=== PATIENT | male | born 1955 | race Caucasian/White ===

== ENCOUNTER 2023-02-02 14:06 | Observation (INO) ==
[2023-02-02 15:25] LABS: BASOPHILS % (AUTO) 0.3 % (0.0-3.0); EOSINOPHILS % (AUTO) 0.5 % (0.0-7.0); HEMATOCRIT 40.9 % (42.0-52.0); LYMPHOCYTES # (AUTO) 1.4 K/uL (0.60-3.4); LYMPHOCYTES % (AUTO) 36.1 (10.0-50.0); MEAN CORPUSCULAR HEMOGLOBIN 29.7 pg (27.0-31.0); MEAN CORPUSCULAR HGB CONC 34.2 (31.8-35.4); MEAN CORPUSCULAR VOLUME 86.7 fl (80.0-94.0); MONOCYTES # (AUTO) 0.7 K/uL (0.4-2.0); MONOCYTES % (AUTO) 17.3 (0-10); NEUTROPHILS # (AUTO) 1.8 K/ul (2.0-6.9); NEUTROPHILS % (AUTO) 45.8 % (42.2-75.2); PLATELET COUNT 144 10^3/uL (140-440); RDW COEFFICIENT OF VARIATION 12.7 % (11.6-14.8); RED BLOOD COUNT 4.72 10^6/ul (4.70-6.10); WHITE BLOOD COUNT 3.99 K/ul (4.2-10.2)
[2023-02-02 15:37] LABS: ALANINE AMINOTRANSFERASE 46.8 U/L (0-50); ALBUMIN 4.15 g/dL (3.5-5.0); BILIRUBIN,TOTAL 0.98 mg/dL (0.2-1.3); BLOOD UREA NITROGEN 14.4 mg/dL (9-20); CALCIUM 8.95 mg/dL (8.4-10.2); CARBON DIOXIDE 27.1 mmol/L (22-30.0); CREATININE 0.9 mg/dL (0.60-1.10); GLUCOSE 99.5 mg/dL (74-106); POTASSIUM 3.89 mmol/L (3.5-5.1); TOTAL PROTEIN 7.79 g/dL (6.3-8.2)
[2023-02-02] MEDS ORDERED: ZOFRAN 4 MG/2 ML IVP ONE (15:41)
--- NOTE | 2023-02-02 15:53 | CT ---
EXAMINATION: HEAD CT WITHOUT CONTRAST HISTORY: Confusion TECHNIQUE: Noncontrast CT of the brain was performed with images acquired from skull base to vertex. 2-D coronal and sagittal reformatted images were obtained from the axial source images. Contrast Dose: None. CT Dose Reduction Techniques Performed: Yes. COMPARISON: None. FINDINGS: Topogram demonstrates no significant abnormality. Intraparenchymal hemorrhage: None. Parenchyma: Normal salter-white differentiation. No mass effect or midline shift. Chronic: Decreased attenuation of the periventricular white matter consistent with microangiopathic i schemic change. Extra-axial spaces and basal cisterns: Normal. Ventricles: Enlargement of the ventricles and subarachnoid spaces consistent with atrophy. Paranasal sinuses and mastoid air cells: Visualized portions of paranasal sinuses are clear. Mastoid air cells are clear. Orbits: Normal visualized portions. Sella/Skull Base: Normal. Other: Scalp and visualized soft tissues are normal. Calvarium is normal. IMPRESSION: 1. No acute intracranial process. 2. Microangiopathic ischemic changes and atrophy are noted. All CT scans are performed using dose optimization techniques as appropriate to the performed exam an d include at least one of the following: Automated exposure control, adjustment of the mA and/or kV according t o size, and the use of iterative reconstruction technique.
--- NOTE | 2023-02-02 15:53 | DI ---
EXAM: CHEST ONE-VIEW HISTORY: Shortness of breath COMPARISON: None FINDINGS: The cardiomediastinal silhouette is normal. The pulmonary vasculature is normal. No cons olidating infiltrates are detected. Postsurgical changes are noted in the right lung base. No pneum othoraces or pleural effusions. IMPRESSION: 1. No acute cardiopulmonary disease. .
[2023-02-02 16:12] LABS: SARS COV-2 RNA RAPID NAAT POSITIVE (NEGATIVE)
[2023-02-02 17:30] VITALS: BMI 27.0
--- NOTE | 2023-02-02 18:32 | ED.PDOC ---
General ED Provider: Dr. ANISHA BAUMAN DO Chief Complaint: Weakness Stated Complaint: 67 year old male recently diagnosed with COVID19 who presents to the emergency department with chief complaint of confusion x 1 day duration. Patients spouse reported patient started becoming confused after initiation of Lagevrio which he was prescribed by his PCP after his COVID diagnosis. Also reports episodes of nausea and vomiting. Denies fever, syncope, chest pain, abdominal pain, diarrhea, dysuria, flank pain, or new focal weakness/numbness. No other associated symptoms or modifying factors at this time. Time Seen by Provider: 02/02/23 14:40 Information Source: Patient, Family and EMT Primary Care Provider: FREDDY SNELL Nursing and Triage Documentation Reviewed and Agree: Yes Review of Systems Review Of Systems Constitutional: Reports No symptoms All Other Systems: Reviewed and Negative [facility] Medical History GERD (gastroesophageal reflux disease) K21.9 - Gastro-esophageal reflux disease without esophagitis (ICD-10) Anxiety F41.9 - Anxiety disorder, unspecified (ICD-10) Right lower lobe lung mass R91.8 - Other nonspecific abnormal finding of lung field (ICD-10) Hyperlipidemia E78.5 - Hyperlipidemia, unspecified (ICD-10) Family History Mother Heart disease Mother Diabetes FATHER Lung cancer Hypoglycemia Social History Smoking and tobacco status: Former smoker How long ago did patient quit smokin+ years Surgical History H/O hernia repair Z98.890 - Other specified postprocedural states (ICD-10) Z87.19 - Personal history of other diseases of the digestive system (ICD-10) History of cholecystectomy Z90.49 - Acquired absence of other specified parts of digestive tract (ICD- 10) Physical Exam Physical Exam Appearance: Reports Ill-appearing, No pain distress and Well-nourished Ill-appearing: Mild Pain Distress: None Eyes: Reports KARO, EOMI and Conjunctiva clear ENT: Reports Ears normal, Nose normal and Oropharynx normal Neck: Supple Respiratory: Reports Airway patent, Breath sounds clear, Breath sounds equal and Respirations nonlabored Cardiovascular: Reports RRR, Pulses normal, No rub and No murmur GI/: Reports Soft, Nontender, No masses, Bowel sounds normal and No Organomegaly Musculoskeletal: Reports Normal strength, ROM intact, No edema and No calf tenderness Skin: Reports Warm, Dry and Normal color Neurological: Reports Sensation intact, Motor intact, Alert and Disoriented (encephalopathic. slow to respond and AAOx1) Psychiatric: Reports Other (flat mood and affect) Critical Care Note Critical Care Note Total Critical Care Time (mins): 0 Course Course 02/05/23 09:18 02/05/23 09:18 Orders, Labs, Meds: Lab Review 02/02/23 02/02/23 15:05 15:10 WBC 3.99 L RBC 4.72 Hgb 14.0 Hct 40.9 L MCV 86.7 MCH 29.7 MCHC 34.2 RDW Coeff of Kassidy 12.7 Plt Count 144 Immature Gran % (Auto) 0.0 Neut % (Auto) 45.8 Lymph % (Auto) 36.1 [place] % (Auto) 17.3 H Eos % (Auto) 0.5 Baso % (Auto) 0.3 Neut # (Auto) 1.8 L Lymph # (Auto) 1.4 [place] # (Auto) 0.7 Eos # (Auto) 0.0 Baso # (Auto) 0.0 Immature Gran # (Auto) 0.0 Sodium 135.0 Potassium 3.89 Chloride 100.0 Carbon Dioxide 27.1 Anion Gap 11.79 BUN 14.4 Creatinine 0.90 Estimated GFR (MDRD) 84.00 BUN/Creatinine Ratio 16.00 Glucose 99.5 Lactic Acid 1.05 Calcium 8.95 Total Bilirubin 0.98 AST 54.0 ALT 46.8 Alkaline Phosphatase 82.0 Total Protein 7.79 Albumin 4.15 Globulin 3.64 Albumin/Globulin Ratio 1.14 Plasma/Serum Alcohol < 10.0 SARS CoV-2 RNA Rapid ITALIA Positive H Orders Category Date Time Status EKG-(ED ONLY) Stat CARDIO 02/02/23 15:01 Completed BLOOD ALCOHOL Stat LAB 02/02/23 15:10 Completed BLOOD CULTURE Stat LAB 02/02/23 15:10 Completed CBC W/ AUTO DIFF Stat LAB 02/02/23 15:10 Completed COMPREHENSIVE METABOLIC PANEL Stat LAB 02/02/23 15:10 Completed DRUG SCREEN, URINE, RAPID Stat LAB 02/02/23 05:30 Completed LACTIC ACID Stat LAB 02/02/23 15:10 Completed POS BC ID AND MCKENZIE Stat LAB 02/02/23 15:16 Completed SARS COV-2 RNA RAPID ITALIA Stat LAB 02/02/23 15:05 Completed Ondansetron HCl/Pf [Zofran 4 mg/2 ml] Meds 02/02/23 15:41 Discontinued 4 mg IVP ONCE ONE CHEST, 1V AP ONLY Stat RADS 02/02/23 15:[address] HEAD W/O CONTRAST Stat RADS 02/02/23 14:59 Completed Medications Discontinued Medications Generic Name Dose Route Start Last Admin Trade Name Freq PRN Reason Stop Dose Admin Acetaminophen 650 mg 02/02/23 16:56 02/05/23 10:27 Acetaminophen 325 Mg Tablet PO 650 mg Q4H PRN Administration Mild Pain Aspirin 81 mg 02/02/23 21:00 02/02/23 21:00 Aspirin 81 Mg Tablet. PO 81 mg DAILY VAMSI Administration Aspirin 81 mg 02/03/23 07:30 02/05/23 09:05 Aspirin 81 Mg Tablet. PO 81 mg DAILYWM2 VAMSI Administration Atorvastatin Calcium 20 mg 02/02/23 21:00 02/03/23 08:28 Atorvastatin Calcium 20 Mg Tablet PO 20 mg DAILY VAMSI Administration Budesonide/Formoterol Fumarate 2 puff 02/02/23 21:00 02/05/23 08:54 Budesonide/Formoterol Fumarate 160/4.5 Mcg Inhaler IH 2 puff BID VAMSI Administration Duloxetine HCl 60 mg 02/02/23 21:00 02/05/23 08:52 Duloxetine Hcl 30 Mg Capsule. PO 60 mg DAILY VAMSI Administration Fluticasone Propionate 1 spray 02/02/23 21:00 02/05/23 08:55 Fluticasone Propionate 16 Gm Nasal Shirley ARTEMIO 1 spray DAILY VAMSI Administration Diphenhydramine HCl 25 mg/ 100.5 mls @ 200 mls/hr 02/03/23 00:57 02/03/23 01:07 Sodium Chloride IV 02/03/23 01:27 200 mls/hr ONCE STA Administration Sodium Chloride 1,000 mls @ 75 mls/hr 02/04/23 15:30 02/05/23 07:01 Sodium Chloride IV Not Given .[id number] VAMSI Isosorbide Mononitrate 30 mg 02/03/23 09:00 02/03/23 08:28 Isosorbide Mononitrate 30 Mg Tab.Er.24h PO 30 mg DAILY VAMSI Administration Loratadine 10 mg 02/02/23 21:00 02/05/23 08:52 Loratadine 10 Mg Tablet PO 10 mg DAILY VAMSI Administration Lorazepam 1 mg 02/02/23 19:51 02/02/23 19:55 Lorazepam Inj 2 Mg/Ml Disp.Syringe IVP 02/02/23 19:52 Not Given ONCE ONE Lorazepam 1 mg 02/02/23 20:00 02/02/23 21:31 Lorazepam Inj 2 Mg/Ml Disp.Syringe IVP 1 mg ONCE PRN Administration Restlessness Metoprolol Succinate 50 mg 02/02/23 21:00 02/05/23 08:52 Metoprolol Succinate 50 Mg Tab.Er.24h PO 50 mg DAILY VAMSI Administration Multivitamins 1 tab 02/02/23 21:00 02/05/23 08:51 Multivitamin 1 Tab PO 1 tab DAILY VAMSI Administration Non-Formulary Medication 1 inh 02/02/23 21:00 Fluticasone Propion-Salmeterol [Advair Diskus] IH BID VAMSI Non-Formulary Medication 800 mg 02/02/23 20:00 02/02/23 21:02 Molnupiravir [Lagevrio (Eua)] PO 800 mg Q12H VAMSI Administration Non-Formulary Medication 800 mg 02/03/23 09:00 02/05/23 09:23 Molnupiravir [Lagevrio (Eua)] PO 800 mg Q12HR VAMSI Administration Ondansetron HCl 4 mg 02/02/23 15:41 02/02/23 15:59 Ondansetron Hcl/Pf 4 Mg/2 Ml Sdv IVP 02/02/23 15:42 4 mg ONCE ONE Administration Pantoprazole Sodium 40 mg 02/02/23 21:00 02/02/23 21:00 Pantoprazole Sodium 40 Mg Tablet.Dr PO 40 mg DAILY VAMSI Administration Pantoprazole Sodium 40 mg 02/03/23 09:00 02/05/23 05:30 Pantoprazole Sodium 40 Mg Tablet.Dr PO 40 mg QDAC2 VAMSI Administration Vital Signs: Temp Pulse Resp BP Pulse Ox 02/02/23 14:09 98.7 F 74 18 173/97 H 94 L Discharge Plan Discharge Patient Disposition: PLACED OBSERVATION Discharge Problem: COVID-19, Acute metabolic encephalopathy Did you review [place]GAL RESEARCHER for ALL controlled substances?: Not Applicable ED Provider: ANISHA BAUMAN Condition: Stable Physician Progress Note: []
[2023-02-02] MEDS ORDERED: ATIVAN IVP ONE (19:51)
[2023-02-02] MEDS ORDERED: MOLNUPIRAVIR 200 MG PO SCH (20:00)
[2023-02-02] MEDS ORDERED: ATIVAN IVP PRN (20:00)
[2023-02-02] MEDS: SYMBICORT 160-4.5 MCG INHALER IH SCH (21:00)
[2023-02-02] MEDS ORDERED: NON-FORMULARY MEDICATION (Fluticasone Propion-Salmeterol [Advair Diskus] 250-50 mcg/dose b IH SCH (21:00)
[2023-02-02] MEDS ORDERED: PROTONIX PO SCH (21:00)
[2023-02-02] MEDS: CYMBALTA PO SCH (21:00)
[2023-02-02] MEDS ORDERED: ASPIRIN EC PO SCH (21:00)
[2023-02-02] MEDS: LIPITOR PO SCH (21:00)
[2023-02-02] MEDS: FLONASE NAS SCH (21:00)
[2023-02-02] MEDS: MULTIVITAMIN TABLET PO SCH (21:00)
[2023-02-02] MEDS: CLARITIN PO SCH (21:00)
[2023-02-02] MEDS: TOPROL XL PO SCH (21:00)
[2023-02-03] MEDS ORDERED: BENADRYL 25 MG in SODIUM CHLORIDE 100ML 100 ML IV STA (00:57)
[2023-02-03] MEDS ORDERED: BENADRYL ONE (01:04)
[2023-02-03 05:38] LABS: BASOPHILS % (AUTO) 0.2 % (0.0-3.0); EOSINOPHILS % (AUTO) 0.4 % (0.0-7.0); HEMATOCRIT 40.1 % (42.0-52.0); HEMOGLOBIN 13.7 g/dl (14.0-18.0); IMMATURE GRANULOCYTE % (AUTO) 0.2 % (0.0-5.0); LYMPHOCYTES # (AUTO) 1.5 K/uL (0.60-3.4); MEAN CORPUSCULAR HEMOGLOBIN 29.5 pg (27.0-31.0); MEAN CORPUSCULAR HGB CONC 34.2 (31.8-35.4); MEAN CORPUSCULAR VOLUME 86.2 fl (80.0-94.0); MONOCYTES # (AUTO) 0.7 K/uL (0.4-2.0); MONOCYTES % (AUTO) 13.8 (0-10); NEUTROPHILS # (AUTO) 2.7 K/ul (2.0-6.9); NEUTROPHILS % (AUTO) 55.4 % (42.2-75.2); PLATELET COUNT 148 10^3/uL (140-440); RDW COEFFICIENT OF VARIATION 12.6 % (11.6-14.8); RED BLOOD COUNT 4.65 10^6/ul (4.70-6.10); WHITE BLOOD COUNT 4.84 K/ul (4.2-10.2)
[2023-02-03 05:49] LABS: ALANINE AMINOTRANSFERASE 52.1 U/L (0-50); ALBUMIN 4.04 g/dL (3.5-5.0); ALKALINE PHOSPHATASE 78.7 U/L (56-119); ASPARTATE AMINO TRANSFERASE 65.2 U/L (17-59); BILIRUBIN,TOTAL 1.15 mg/dL (0.2-1.3); BLOOD UREA NITROGEN 16.6 mg/dL (9-20); CALCIUM 8.86 mg/dL (8.4-10.2); CARBON DIOXIDE 28.6 mmol/L (22-30.0); CREATININE 0.9 mg/dL (0.60-1.10); GLUCOSE 100.2 mg/dL (74-106); POTASSIUM 3.95 mmol/L (3.5-5.1); SODIUM 135.8 mmol/L (134.5-145); TOTAL PROTEIN 7.77 g/dL (6.3-8.2)
[2023-02-03] MEDS: LIPITOR PO SCH (08:28)
[2023-02-03] MEDS: CLARITIN PO SCH (08:28)
[2023-02-03] MEDS: TOPROL XL PO SCH (08:28)
[2023-02-03] MEDS: CYMBALTA PO SCH (08:28)
[2023-02-03] MEDS: MULTIVITAMIN TABLET PO SCH (08:29)
[2023-02-03] MEDS: SYMBICORT 160-4.5 MCG INHALER IH SCH ×2 (08:30→20:00)
[2023-02-03] MEDS: ASPIRIN EC PO SCH (08:30)
[2023-02-03] MEDS: MOLNUPIRAVIR 200 MG PO SCH ×2 (08:53→20:00)
[2023-02-03] MEDS: FLONASE NAS SCH (08:53)
[2023-02-03] MEDS ORDERED: IMDUR PO SCH (09:00)
[2023-02-03 09:31] LABS: BILIRUBIN,URINE Negative (NEGATIVE); CLARITY,URINE Cloudy (CLEAR); COLOR,URINE Yellow (YELLOW); GLUCOSE, URINE (UA) Negative (NEGATIVE); KETONES,URINE 1+ (NEGATIVE); LEUKOCYTE ESTERASE ,URINE Negative (NEGATIVE); NITRITE,URINE Negative (NEGATIVE); PROTEIN,URINE 2+ (NEGATIVE); URINE, BLOOD 3+ (NEGATIVE)
[2023-02-03 09:34] LABS: AMORPHOUS SEDIMENT,UR 3+ (NOT PRESENT); RENAL EPITHELIAL CELLS,URINE 0-2 (NOT PRESENT); SQUAMOUS EPITHELIAL CELL,UR NOT PRESENT (0-5); URINE WBC, MICROSCOPIC 0-2 (0-2)
[2023-02-03 09:36] LABS: AMPHETAMINE SCREEN,URINE NEGATIVE (NEGATIVE); BARBITURATE SCREEN,URINE NEGATIVE (NEGATIVE); BENZODIAZEPINES SCREEN,URINE POSITIVE (NEGATIVE); CANNABINOID SCREEN,URINE NEGATIVE (NEGATIVE); COCAIN SCREEN,URINE NEGATIVE (NEGATIVE); METHADONE URINE SCREEN NEGATIVE (NEGATIVE); METHAMPHETAMINES SCREEN,URINE NEGATIVE (NEGATIVE); OPIATE SCREEN,URINE NEGATIVE (NEGATIVE); OXYCODONE URINE SCREEN NEGATIVE (NEGATIVE); PHENCYCLIDINE SCREEN,URINE NEGATIVE (NEGATIVE); TRICYCLIC ANTIDEPRESSANTS URIN NEGATIVE (NEGATIVE)
[2023-02-03] MEDS: PROTONIX PO SCH (11:34)
--- NOTE | 2023-02-03 13:19 | PCM ---
Date of Service Date Seen by Provider: 02/03/23 Time Seen by Provider: 09:00 Admit Day/Time Admission Date: 02/02/23 Reason for Admission Chief Complaint: COVID POSITIVE, ACUTE METABOLIC ENCEPHALOPATHY Hospital Provider Hospital Provider: INDER KNUT[place], [facility] [place] Primary Care Physician: FREDDY SNELL History of Present Illness History of Present Illness: 67 yo male presented to the ER for altered mental status and weakness. reports that he started getting sick on 01/28 with symptoms of congestion, sore throat, and cough. Tested for Covid on Wednesday and was negative. Tested again on Wednesday and was positive. ER tested as well and confirmed the positive. He is asymptomatic now, but has had generalized weakness that has continued to worsen. reports that at home he has been unable to get up to use the bathroom or perform any of his ADLs since the onset of his symptoms. He has been taking molnupiravir since Wednesday. Patient has a history of dementia and is confused at baseline but not to this degree per her report. He is disoriented x 3. However, he is able to follow some basic commands. Due to this, unable to provide HPI/ROS. Case Discussed With Case Discussed With: Patient's case was discussed with the ER Physicians, Dr. Lorenz. [facility] Medical History GERD (gastroesophageal reflux disease) K21.9 - Gastro-esophageal reflux disease without esophagitis (ICD-10) Anxiety F41.9 - Anxiety disorder, unspecified (ICD-10) Right lower lobe lung mass R91.8 - Other nonspecific abnormal finding of lung field (ICD-10) Hyperlipidemia E78.5 - Hyperlipidemia, unspecified (ICD-10) Surgical History H/O hernia repair Z98.890 - Other specified postprocedural states (ICD-10) Z87.19 - Personal history of other diseases of the digestive system (ICD-10) History of cholecystectomy Z90.49 - Acquired absence of other specified parts of digestive tract (ICD- 10) Family History Mother Heart disease Mother Diabetes FATHER Lung cancer Hypoglycemia Social History Smoking and tobacco status: Former smoker How long ago did patient quit smokin+ years Allergies Allergies Allergy/AdvReac Type Severity Reaction Status Date / Time nabumetone [From Relafen] AdvReac Verified 02/02/23 14:49 silver AdvReac Verified 02/02/23 14:49 [From Tegaderm AG Mesh] simvastatin [From Zocor] AdvReac Verified 02/02/23 14:49 Current Medications Home Medications albuterol sulfate 90 mcg/actuation aerosol inhaler 2 puff inhalation Q4H PRN shortness of breath or wheezing 02/02/23 [History Confirmed 02/02/23 Last Taken 02/02/23 09:00] aspirin 81 mg tablet,delayed release (Adult Low Dose Aspirin) 81 mg PO DAILY 02/02/23 [History Confirmed 02/02/23 Last Taken 02/01/23 09:00] atorvastatin 20 mg tablet 20 mg PO DAILY 02/02/23 [History Confirmed 02/02/23 Last Taken 02/01/23 21:00] docusate calcium 240 mg capsule 240 mg PO DAILY PRN constipation 02/02/23 [History Confirmed 02/02/23 Last Taken Unknown] duloxetine 60 mg capsule,delayed release 60 mg PO DAILY 02/02/23 [History Confirmed 02/02/23 Last Taken 02/01/23 09:00] fluticasone 250 mcg-salmeterol 50 mcg/dose blistr powdr for inhalation (Advair Diskus) 1 inh inhalation BID 02/02/23 [History Confirmed 02/02/23 Last Taken 02/01/23 21:00] fluticasone propionate 50 mcg/actuation nasal spray,suspension 1 spray intranasal DAILY 02/02/23 [History Confirmed 02/02/23 Last Taken 02/01/23 09:00] ibuprofen-diphenhydramine citrate 200 mg-38 mg tablet 1 cap PO BEDTIME PRN sleep 02/02/23 [History Confirmed 02/02/23 Last Taken Unknown] isosorbide mononitrate 30 mg tablet,extended release 24 hr 30 mg PO DAILY 02/02/23 [History Confirmed 02/02/23 Last Taken Unknown] loratadine 10 mg tablet (Claritin) 10 mg PO DAILY 02/02/23 [History Confirmed 02/02/23 Last Taken 02/01/23 08:00] metoprolol succinate 50 mg tablet,extended release 24 hr 50 mg PO DAILY 02/02/23 [History Confirmed 02/02/23 Last Taken 02/01/23 08:00] molnupiravir 200 mg capsule (EUA) (Lagevrio) 800 mg PO Q12H 02/02/23 [History Confirmed 02/02/23 Last Taken 02/02/23 09:00] pantoprazole 40 mg tablet,delayed release (Protonix) 40 mg PO DAILY 02/02/23 [History Confirmed 02/02/23 Last Taken Unknown] Home Acetaminophen (Acetaminophen 325 Mg Tablet) 650 mg PO Q4H PRN PRN Reason: Mild Pain Aspirin (Aspirin 81 Mg Tablet.) 81 mg PO DAILYWM2 [facility] Last Admin: 02/03/23 08:30 Dose: 81 mg Atorvastatin Calcium (Atorvastatin Calcium 20 Mg Tablet) 20 mg PO DAILY [facility] Last Admin: 02/03/23 08:28 Dose: 20 mg Budesonide/Formoterol Fumarate (Budesonide/Formoterol Fumarate 160/4.5 Mcg Inhaler) 2 puff IH BID [facility] Last Admin: 02/03/23 08:30 Dose: 2 puff Duloxetine HCl (Duloxetine Hcl 30 Mg Capsule.) 60 mg PO DAILY [facility] Last Admin: 02/03/23 08:28 Dose: 60 mg Fluticasone Propionate (Fluticasone Propionate 16 Gm Nasal [place]) 1 spray ARTEMIO DAILY [facility] Last Admin: 02/03/23 08:53 Dose: Not Given Isosorbide Mononitrate (Isosorbide Mononitrate 30 Mg Tab.Er.24h) 30 mg PO DAILY [facility] Last Admin: 02/03/23 08:28 Dose: 30 mg Loratadine (Loratadine 10 Mg Tablet) 10 mg PO DAILY [facility] Last Admin: 02/03/23 08:28 Dose: 10 mg Lorazepam (Lorazepam Inj 2 Mg/Ml Disp.Syringe) 1 mg IVP ONCE PRN PRN Reason: Restlessness Last Admin: 02/02/23 21:31 Dose: 1 mg Metoprolol Succinate (Metoprolol Succinate 50 Mg Tab.Er.24h) 50 mg PO DAILY [facility] Last Admin: 02/03/23 08:28 Dose: 50 mg Multivitamins (Multivitamin 1 Tab) 1 tab PO DAILY [facility] Last Admin: 02/03/23 08:29 Dose: 1 tab Non-Formulary Medication (Molnupiravir [Lagevrio (Eua)]) 800 mg PO Q12HR [facility] Last Admin: 02/03/23 08:53 Dose: 800 mg Pantoprazole Sodium (Pantoprazole Sodium 40 Mg Tablet.) 40 mg PO QDAC2 [facility] Last Admin: 02/03/23 11:34 Dose: 40 mg Discontinued Medications Aspirin (Aspirin 81 Mg Tablet.) 81 mg PO DAILY [facility] Last Admin: 02/02/23 21:00 Dose: 81 mg Diphenhydramine HCl 25 mg/ (Sodium Chloride) 100.5 mls @ 200 mls/hr IV ONCE STA Stop: 02/03/23 01:27 Last Admin: 02/03/23 01:07 Dose: 200 mls/hr Lorazepam (Lorazepam Inj 2 Mg/Ml Disp.Syringe) 1 mg IVP ONCE ONE Stop: 02/02/23 19:52 Last Admin: 02/02/23 19:55 Dose: Not Given Non-Formulary Medication (Fluticasone Propion-Salmeterol [Advair Diskus]) 1 inh IH BID [facility] Non-Formulary Medication (Molnupiravir [Lagevrio (Eua)]) 800 mg PO Q12H [facility] Last Admin: 02/02/23 21:02 Dose: 800 mg Ondansetron HCl (Ondansetron Hcl/Pf 4 Mg/2 Ml Sdv) 4 mg IVP ONCE ONE Stop: 02/02/23 15:42 Last Admin: 02/02/23 15:59 Dose: 4 mg Pantoprazole Sodium (Pantoprazole Sodium 40 Mg Tablet.) 40 mg PO DAILY [facility] Last Admin: 02/02/23 21:00 Dose: 40 mg Physical examination Most Recent Vital Signs: Most Recent Vital Signs Temperature 97.4 F L 02/03/23 05:54 Temperature Source Temporal Artery Scan 02/03/23 05:54 Temperature Source Infrared 02/02/23 14:09 Pulse Rate 74 02/03/23 05:54 Respiratory Rate 24 H 02/03/23 05:54 Blood Pressure 146/64 H 02/03/23 05:54 Blood Pressure Mean 91 02/03/23 05:54 Blood Pressure Right Arm 154/78 02/02/23 17:05 Blood Pressure Location Right Arm 02/03/23 05:54 Blood Pressure Position Supine 02/03/23 05:54 O2 Sat by Pulse Oximetry 94 L 02/02/23 22:00 Oxygen Delivery Method Room Air 02/03/23 12:00 Height 5 ft 9 in 02/02/23 17:05 Weight 183 lb 02/02/23 17:05 Telemetry Type Remote Telemetry 02/03/23 07:00 Telemetry Monitoring Continues 02/03/23 07:00 Telemetry Heart Rate 74 02/03/23 07:00 Telemetry SPO2 93 02/02/23 19:00 EKG PA Interval 0.14 02/03/23 07:00 EKG QRS Interval 0.06 02/03/23 07:00 Telemetry Strip Reading sr w/ pac 02/03/23 07:00 Appearance: Positive No Apparent Distress Skin: Positive Warm and Good Turgor HEENT: Positive Normocephalic and PERRLA Neck: Positive Supple and Midline Trachea Chest/Lungs: Positive Symmetrical With Equal Breath Sounds, Clear to Auscultation Bilaterally and Good Air Movement all 4 Lung [place] Heart: Positive RRR and Pulses Normal GI/: Positive Soft, Nontender, Bowel Sounds Normal, No Distention and No Organomegaly Musculoskeletal: Positive Not Examined Extremities: Positive Intact Peripheral Pulses, Stable Joints Without Laxity and Good ROM in All Joints Neurological: Positive Sensation Intact, Motor intact, Reflexes Intact, Alert, Disorinted and Other (Generalized weakness) Labs This Visit Labs This Visit: Labs This Visit 02/02/23 02/02/23 02/03/23 15:05 15:10 05:30 WBC 3.99 L RBC 4.72 Hgb 14.0 Hct 40.9 L MCV 86.7 MCH 29.7 MCHC 34.2 RDW Coeff of Kassidy 12.7 Plt Count 144 Immature Gran % (Auto) 0.0 Neut % (Auto) 45.8 Lymph % (Auto) 36.1 [place] % (Auto) 17.3 H Eos % (Auto) 0.5 Baso % (Auto) 0.3 Neut # (Auto) 1.8 L Lymph # (Auto) 1.4 [place] # (Auto) 0.7 Eos # (Auto) 0.0 Baso # (Auto) 0.0 Immature Gran # (Auto) 0.0 Sodium 135.0 Potassium 3.89 Chloride 100.0 Carbon Dioxide 27.1 Anion Gap 11.79 BUN 14.4 Creatinine 0.90 Estimated GFR (MDRD) 84.00 BUN/Creatinine Ratio 16.00 Glucose 99.5 Lactic Acid 1.05 Calcium 8.95 Total Bilirubin 0.98 AST 54.0 ALT 46.8 Alkaline Phosphatase 82.0 Total Protein 7.79 Albumin 4.15 Globulin 3.64 Albumin/Globulin Ratio 1.14 Urine Color Yellow Urine Clarity Cloudy Urine pH 5.0 Ur Specific [place] 1.025 Urine Protein 2+ H Urine Glucose (UA) Negative Urine Ketones 1+ H Urine Blood 3+ H Urine Nitrite Negative Urine Bilirubin Negative Urine Urobilinogen 1.0 H Ur Leukocyte Esterase Negative Urine Microscopic RBC 5-10 Urine Microscopic WBC 0-2 Ur Squamous Epith Cells Not present Ur Renal Epithelial Cell 0-2 Amorphous Sediment 3+ Urine Opiates Screen Negative Ur Oxycodone Screen Negative Urine Methadone Screen Negative Ur Barbiturates Screen Negative U Tricyclic Antidepress Negative Ur Phencyclidine Scrn Negative Ur Amphetamine Screen Negative U Methamphetamines Scrn Negative U Benzodiazepines Scrn Positive H Urine Cocaine Screen Negative U Cannabinoids Screen Negative Plasma/Serum Alcohol < 10.0 SARS CoV-2 RNA Rapid ITALIA Positive H 02/03/23 05:33 WBC 4.84 RBC 4.65 L Hgb 13.7 L Hct 40.1 L MCV 86.2 MCH 29.5 MCHC 34.2 RDW Coeff of Kassidy 12.6 Plt Count 148 Immature Gran % (Auto) 0.2 Neut % (Auto) 55.4 Lymph % (Auto) 30.0 [place] % (Auto) 13.8 H Eos % (Auto) 0.4 Baso % (Auto) 0.2 Neut # (Auto) 2.7 Lymph # (Auto) 1.5 [place] # (Auto) 0.7 Eos # (Auto) 0.0 Baso # (Auto) 0.0 Immature Gran # (Auto) 0.0 Sodium 135.8 Potassium 3.95 Chloride 99.0 Carbon Dioxide 28.6 Anion Gap 12.15 BUN 16.6 Creatinine 0.90 Estimated GFR (MDRD) 84.00 BUN/Creatinine Ratio 18.44 Glucose 100.2 Lactic Acid Calcium 8.86 Total Bilirubin 1.15 AST 65.2 H ALT 52.1 H Alkaline Phosphatase 78.7 Total Protein 7.77 Albumin 4.04 Globulin 3.73 Albumin/Globulin Ratio 1.08 Urine Color Urine Clarity Urine pH Ur Specific [place] Urine Protein Urine Glucose (UA) Urine Ketones Urine Blood Urine Nitrite Urine Bilirubin Urine Urobilinogen Ur Leukocyte Esterase Urine Microscopic RBC Urine Microscopic WBC Ur Squamous Epith Cells Ur Renal Epithelial Cell Amorphous Sediment Urine Opiates Screen Ur Oxycodone Screen Urine Methadone Screen Ur Barbiturates Screen U Tricyclic Antidepress Ur Phencyclidine Scrn Ur Amphetamine Screen U Methamphetamines Scrn U Benzodiazepines Scrn Urine Cocaine Screen U Cannabinoids Screen Plasma/Serum Alcohol SARS CoV-2 RNA Rapid ITALIA Microbiology This Visit 02/02/23 15:10 Blood Blood Culture - Preliminary Imaging Imaging: EXAM: CHEST ONE-VIEW FINDINGS: The cardiomediastinal silhouette is normal. The pulmonary vasculature is normal. No consolidating infiltrates are detected. Postsurgical changes are noted in the right lung base. No pneumothoraces or pleural effusions. IMPRESSION: 1. No acute cardiopulmonary disease. Review Statement Review Statement: I have independently reviewed and interpreted the labs/EKGs/imaging that were ordered by the ER provider. I have reviewed all outside records that are available currently in our EMR including imaging/notes/labs from previous visits. Plan Plan: 1. Acute Metabolic Encephalopathy in setting of Covid-19 - avoid any neurologically altering medications, neurochecks, checking urinalysis which was negative, UDS negative, head CT negative 2. Covid-19 - asymptomatic, continue molnupiravir until course completed, monitor respiratory status 3. Weakness in setting of Covid-19 - PT/OT consulted to determine need for treatment 4. Positive Blood Culture - gram positive cocci - likely contaminant; no source of infection at this time, no fever, WBC count, procal negative, will repeat 5. Hypertension - chronic, continue home medications DVT Prophylaxis: Ambulation Time Spent: Greater than 80 minutes spent with patient, 50% of the time spent with this patient was devoted to counseling and coordination of care. Advanced Care Plannin minutes spent discussing advance care planning. Disposition: Admit to: Med/Surg Observation Full Code Discussed Plan of Care with Dr. Ave Escobar. Medications Medication Orders: Medications Ordered Category Date Time Status Acetaminophen [Tylenol] Meds 02/02/23 16:56 Active 650 mg PO Q4H PRN Aspirin [Aspirin EC] Meds 02/03/23 07:30 Active 81 mg PO DAILYWM2 Atorvastatin Calcium [Lipitor] Meds 02/02/23 21:00 Hold 20 mg PO DAILY Budesonide/Formoterol Fumarate [Symbicort 160-4.5 Mcg Meds 02/02/23 21:00 Active Inhaler] 2 puff IH BID Duloxetine HCl [Cymbalta] Meds 02/02/23 21:00 Active 60 mg PO DAILY Fluticasone Propionate [Flonase] Meds 02/02/23 21:00 Active 1 spray ARTEMIO DAILY Isosorbide Mononitrate [Imdur] Meds 02/03/23 09:00 Active 30 mg PO DAILY Loratadine [Claritin] Meds 02/02/23 21:00 Active 10 mg PO DAILY Lorazepam Inj [Ativan] Meds 02/02/23 20:00 Active 1 mg IVP ONCE PRN Metoprolol Succinate [Toprol Xl] Meds 02/02/23 21:00 Active 50 mg PO DAILY Molnupiravir [Lagevrio (Eua)] Meds 02/03/23 09:00 Active 800 mg PO Q12HR Multivitamin [Multivitamin Tablet] Meds 02/02/23 21:00 Active 1 tab PO DAILY Pantoprazole Sodium [Protonix] Meds 02/03/23 09:00 Active 40 mg PO QDAC2
[2023-02-03] MEDS: TYLENOL PO PRN (16:19)
[2023-02-04 05:19] LABS: BASOPHILS % (AUTO) 0.4 % (0.0-3.0); EOSINOPHILS # (AUTO) 0.1 K/ul (0.0-0.7); EOSINOPHILS % (AUTO) 2.5 % (0.0-7.0); HEMATOCRIT 39.2 % (42.0-52.0); HEMOGLOBIN 13.1 g/dl (14.0-18.0); LYMPHOCYTES # (AUTO) 2.5 K/uL (0.60-3.4); LYMPHOCYTES % (AUTO) 48.4 (10.0-50.0); MEAN CORPUSCULAR HEMOGLOBIN 29.1 pg (27.0-31.0); MEAN CORPUSCULAR HGB CONC 33.4 (31.8-35.4); MEAN CORPUSCULAR VOLUME 87.1 fl (80.0-94.0); MONOCYTES # (AUTO) 0.6 K/uL (0.4-2.0); MONOCYTES % (AUTO) 11.5 (0-10); NEUTROPHILS # (AUTO) 1.9 K/ul (2.0-6.9); NEUTROPHILS % (AUTO) 37.2 % (42.2-75.2); PLATELET COUNT 144 10^3/uL (140-440); RDW COEFFICIENT OF VARIATION 12.6 % (11.6-14.8); WHITE BLOOD COUNT 5.21 K/ul (4.2-10.2)
[2023-02-04 05:32] LABS: ALANINE AMINOTRANSFERASE 52.3 U/L (0-50); ALBUMIN 3.92 g/dL (3.5-5.0); ASPARTATE AMINO TRANSFERASE 62.6 U/L (17-59); BILIRUBIN,TOTAL 1.34 mg/dL (0.2-1.3); BLOOD UREA NITROGEN 22.1 mg/dL (9-20); CALCIUM 8.68 mg/dL (8.4-10.2); CARBON DIOXIDE 30.5 mmol/L (22-30.0); CHLORIDE 99.3 mmol/L (98-107); CREATININE 0.98 mg/dL (0.60-1.10); GLUCOSE 87.4 mg/dL (74-106); POTASSIUM 3.78 mmol/L (3.5-5.1); SODIUM 137.1 mmol/L (134.5-145); TOTAL PROTEIN 7.47 g/dL (6.3-8.2)
[2023-02-04] MEDS: PROTONIX PO SCH (06:11)
[2023-02-04] MEDS: CYMBALTA PO SCH (08:38)
[2023-02-04] MEDS: TOPROL XL PO SCH (08:39)
[2023-02-04] MEDS: CLARITIN PO SCH (08:39)
[2023-02-04] MEDS: MULTIVITAMIN TABLET PO SCH (08:39)
[2023-02-04] MEDS: FLONASE NAS SCH (08:40)
[2023-02-04] MEDS: SYMBICORT 160-4.5 MCG INHALER IH SCH ×2 (08:40→20:12)
[2023-02-04] MEDS: ASPIRIN EC PO SCH (08:45)
[2023-02-04] MEDS: MOLNUPIRAVIR 200 MG PO SCH ×2 (08:46→20:11)
--- NOTE | 2023-02-04 15:30 | PCM.PROG ---
Date/Time Seen Date Seen by Provider: 02/04/23 Time Seen by Provider: 09:00 Provider Provider: INDER KNUT[facility] Chief Complaint Chief Complaint: COVID POSITIVE, ACUTE METABOLIC ENCEPHALOPATHY Subjective Subjective: No events overnight. feels mental status is improving more to baseline. Nursing reports dark urine and not eating or drinking well today. Objective Appearance: Positive No Apparent Distress Chest/Lungs: Positive Symmetrical With Equal Breath Sounds, Clear to Auscultation Bilaterally and Good Air Movement all 4 Lung [place] Heart: Positive RRR and Pulses Normal GI/: Positive Soft, Nontender, Bowel Sounds Normal and No Distention Musculoskeletal: Positive Not Examined Neurological: Positive Sensation Intact, Motor intact, Alert, Oriented and Other (generalized weakness) Vital Signs Vital Signs: Vital Signs: Last 24 Hours 02/03/23 16:00 02/03/23 17:00 02/03/23 17:53 Temperature Temperature Source Pulse Rate Respiratory Rate Blood Pressure Blood Pressure Mean Blood Pressure Location Blood Pressure Position O2 Sat by Pulse Oximetry Oxygen Delivery Method Room Air Room Air Room Air Telemetry Type Telemetry Monitoring Irregular Telemetry Rate (Approximate) Telemetry Heart Rate EKG WV Interval EKG QRS Interval Telemetry Strip Reading 02/03/23 18:00 02/03/23 18:57 02/03/23 19:00 Temperature 97.3 F L Temperature Source Temporal Artery Scan Pulse Rate 70 Respiratory Rate 11 L Blood Pressure 100/45 L Blood Pressure Mean 63 Blood Pressure Location Right Arm Blood Pressure Position Supine O2 Sat by Pulse Oximetry 95 Oxygen Delivery Method Room Air Room Air Telemetry Type Remote Telemetry Telemetry Monitoring Continues Irregular Telemetry Rate (Approximate) Telemetry Heart Rate 65 EKG WV Interval 0.17 EKG QRS Interval 0.06 Telemetry Strip Reading SR 02/03/23 19:50 02/03/23 20:00 02/03/23 20:52 Temperature Temperature Source Pulse Rate Respiratory Rate Blood Pressure Blood Pressure Mean Blood Pressure Location Blood Pressure Position O2 Sat by Pulse Oximetry Oxygen Delivery Method Room Air Room Air Room Air Telemetry Type Telemetry Monitoring Irregular Telemetry Rate (Approximate) Telemetry Heart Rate EKG WV Interval EKG QRS Interval Telemetry Strip Reading 02/03/23 21:07 02/03/23 22:00 02/03/23 23:00 Temperature 97.2 F L Temperature Source Temporal Artery Scan Pulse Rate 68 Respiratory Rate 16 Blood Pressure 120/48 L Blood Pressure Mean 72 Blood Pressure Location Left Arm Blood Pressure Position O2 Sat by Pulse Oximetry 95 Oxygen Delivery Method Room Air Room Air Room Air Telemetry Type Telemetry Monitoring Irregular Telemetry Rate (Approximate) Telemetry Heart Rate EKG WV Interval EKG QRS Interval Telemetry Strip Reading 02/04/23 00:00 02/04/23 00:45 02/04/23 01:00 Temperature Temperature Source Pulse Rate Respiratory Rate Blood Pressure Blood Pressure Mean Blood Pressure Location Blood Pressure Position O2 Sat by Pulse Oximetry Oxygen Delivery Method Room Air Room Air Telemetry Type Bedside Monitor Telemetry Monitoring Continues Irregular Telemetry Rate (Approximate) Telemetry Heart Rate 70 EKG WV Interval 0.19 EKG QRS Interval 0.06 Telemetry Strip Reading SR 02/04/23 02:00 02/04/23 02:00 02/04/23 03:00 Temperature Temperature Source Pulse Rate 66 Respiratory Rate 17 Blood Pressure Blood Pressure Mean Blood Pressure Location Blood Pressure Position O2 Sat by Pulse Oximetry Oxygen Delivery Method Room Air Room Air Room Air Telemetry Type Telemetry Monitoring Irregular Telemetry Rate (Approximate) Telemetry Heart Rate EKG WV Interval EKG QRS Interval Telemetry Strip Reading 02/04/23 04:00 02/04/23 05:00 02/04/23 05:19 Temperature Temperature Source Pulse Rate Respiratory Rate Blood Pressure Blood Pressure Mean Blood Pressure Location Blood Pressure Position O2 Sat by Pulse Oximetry Oxygen Delivery Method Room Air Room Air Room Air Telemetry Type Telemetry Monitoring Irregular Telemetry Rate (Approximate) Telemetry Heart Rate EKG WV Interval EKG QRS Interval Telemetry Strip Reading 02/04/23 06:00 02/04/23 07:00 02/04/23 07:00 Temperature 97.6 F Temperature Source Temporal Artery Scan Pulse Rate 71 Respiratory Rate 13 Blood Pressure 124/56 L Blood Pressure Mean 78 Blood Pressure Location Right Arm Blood Pressure Position Supine O2 Sat by Pulse Oximetry 95 Oxygen Delivery Method Room Air Room Air Telemetry Type Bedside Monitor Telemetry Monitoring Continues Irregular Telemetry Rate (Approximate) 60-70 BPM Telemetry Heart Rate EKG WV Interval 0.20 EKG QRS Interval 0.08 Telemetry Strip Reading SA 02/04/23 08:00 02/04/23 08:00 02/04/23 09:00 Temperature Temperature Source Pulse Rate Respiratory Rate Blood Pressure Blood Pressure Mean Blood Pressure Location Blood Pressure Position O2 Sat by Pulse Oximetry Oxygen Delivery Method Room Air Room Air Room Air Telemetry Type Telemetry Monitoring Irregular Telemetry Rate (Approximate) Telemetry Heart Rate EKG WV Interval EKG QRS Interval Telemetry Strip Reading 02/04/23 10:00 02/04/23 10:00 02/04/23 11:00 Temperature 97.7 F Temperature Source Temporal Artery Scan Pulse Rate 75 Respiratory Rate 15 Blood Pressure 132/67 Blood Pressure Mean 88 Blood Pressure Location Right Arm Blood Pressure Position Supine O2 Sat by Pulse Oximetry 94 L Oxygen Delivery Method Room Air Room Air Room Air Telemetry Type Telemetry Monitoring Irregular Telemetry Rate (Approximate) Telemetry Heart Rate EKG WV Interval EKG QRS Interval Telemetry Strip Reading 02/04/23 12:00 02/04/23 13:00 02/04/23 13:00 Temperature Temperature Source Pulse Rate Respiratory Rate Blood Pressure Blood Pressure Mean Blood Pressure Location Blood Pressure Position O2 Sat by Pulse Oximetry Oxygen Delivery Method Room Air Room Air Telemetry Type Remote Telemetry Telemetry Monitoring Continues Irregular Telemetry Rate (Approximate) Telemetry Heart Rate 75 EKG WV Interval 0.20 EKG QRS Interval 0.08 Telemetry Strip Reading SR 02/04/23 14:00 02/04/23 14:00 Temperature 97.3 F L Temperature Source Temporal Artery Scan Pulse Rate 67 Respiratory Rate 22 H Blood Pressure 151/70 H Blood Pressure Mean 97 Blood Pressure Location Right Arm Blood Pressure Position Supine O2 Sat by Pulse Oximetry 94 L Oxygen Delivery Method Room Air Room Air Telemetry Type Telemetry Monitoring Irregular Telemetry Rate (Approximate) Telemetry Heart Rate EKG WV Interval EKG QRS Interval Telemetry Strip Reading Lab Results Lab Results: Lab Results: Last 24 Hours 02/04/23 02/04/23 10:57 05:13 WBC 5.21 RBC 4.50 L Hgb 13.1 L Hct 39.2 L MCV 87.1 MCH 29.1 MCHC 33.4 RDW Coeff of Kassidy 12.6 Plt Count 144 Immature Gran % (Auto) 0.0 Neut % (Auto) 37.2 L Lymph % (Auto) 48.4 [place] % (Auto) 11.5 H Eos % (Auto) 2.5 Baso % (Auto) 0.4 Neut # (Auto) 1.9 L Lymph # (Auto) 2.5 [place] # (Auto) 0.6 Eos # (Auto) 0.1 Baso # (Auto) 0.0 Immature Gran # (Auto) 0.0 Sodium 137.1 Potassium 3.78 Chloride 99.3 Carbon Dioxide 30.5 H Anion Gap 11.08 BUN 22.1 H Creatinine 0.98 Estimated GFR (MDRD) 76.00 BUN/Creatinine Ratio 22.55 Glucose 87.4 Calcium 8.68 Total Bilirubin 1.34 H AST 62.6 H ALT 52.3 H Alkaline Phosphatase 71.0 Ammonia < 8.7 L Total Protein 7.47 Albumin 3.92 Globulin 3.55 Albumin/Globulin Ratio 1.10 Additional Comments Additional Comments: I have independently reviewed and interpreted the labs/EKGs/imaging ordered during this hospital stay. I have reviewed outside records that are available in our EMR that pertain to medical stay including imaging/notes/labs from previous visits. Active Medications Active Medications: Medications Generic Name Dose Route Start Last Admin Trade Name Freq PRN Reason Stop Dose Admin Acetaminophen 650 mg 02/02/23 16:56 02/03/23 16:19 Acetaminophen 325 Mg Tablet PO 650 mg Q4H PRN Administration Mild Pain Aspirin 81 mg 02/03/23 07:30 02/04/23 08:45 Aspirin 81 Mg Tablet. PO 81 mg DAILYWM2 VAMSI Administration Atorvastatin Calcium 20 mg 02/02/23 21:00 02/03/23 08:28 Atorvastatin Calcium 20 Mg Tablet PO 20 mg DAILY VAMSI Administration Budesonide/Formoterol Fumarate 2 puff 02/02/23 21:00 02/04/23 08:40 Budesonide/Formoterol Fumarate 160/4.5 Mcg Inhaler IH 2 puff BID VAMSI Administration Duloxetine HCl 60 mg 02/02/23 21:00 02/04/23 08:38 Duloxetine Hcl 30 Mg Capsule. PO 60 mg DAILY VAMSI Administration Fluticasone Propionate 1 spray 02/02/23 21:00 02/04/23 08:40 Fluticasone Propionate 16 Gm Nasal [place] ARTEMIO 1 spray DAILY VAMSI Administration Sodium Chloride 1,000 mls @ 75 mls/hr 02/04/23 15:30 Sodium Chloride IV .[id number] VAMSI Isosorbide Mononitrate 30 mg 02/03/23 09:00 02/03/23 08:28 Isosorbide Mononitrate 30 Mg Tab.Er.24h PO 30 mg DAILY VAMSI Administration Loratadine 10 mg 02/02/23 21:00 02/04/23 08:39 Loratadine 10 Mg Tablet PO 10 mg DAILY VAMSI Administration Lorazepam 1 mg 02/02/23 20:00 02/02/23 21:31 Lorazepam Inj 2 Mg/Ml Disp.Syringe IVP 1 mg ONCE PRN Administration Restlessness Metoprolol Succinate 50 mg 02/02/23 21:00 02/04/23 08:39 Metoprolol Succinate 50 Mg Tab.Er.24h PO 50 mg DAILY VAMSI Administration Multivitamins 1 tab 02/02/23 21:00 02/04/23 08:39 Multivitamin 1 Tab PO 1 tab DAILY VAMSI Administration Non-Formulary Medication 800 mg 02/03/23 09:00 02/04/23 08:46 Molnupiravir [Lagevrio (Eua)] PO 800 mg Q12HR VAMSI Administration Pantoprazole Sodium 40 mg 02/03/23 09:00 02/04/23 06:11 Pantoprazole Sodium 40 Mg Tablet. PO 40 mg QDAC2 VAMSI Administration Plan Plan: 1. Acute Metabolic Encephalopathy in setting of Covid-19 - avoid any neurologically altering medications, neurochecks, urinalysis negative, UDS negative, head CT negative, ammonia negative 2. Covid-19 - asymptomatic, continue molnupiravir until course completed, monitor respiratory status, 3. Weakness in setting of Covid-19 - PT/OT consulted, recommended home health PT/OT 4. Positive Blood Culture - gram positive cocci - likely contaminant; no source of infection at this time, no fever, WBC count, procal negative, repeat cultures ordered 5. Hypertension - chronic, continue home medications 6. Acute Transaminitis - likely due to Covid-19 and molnupiravir, monitor 7. Dehydration - mild, patient not drinking well, BUN increased overnight, NS@75mL/hr DVT Prophylaxis: Ambulation Review Statement Review Statement: I have personally discussed and reviewed the patient's visit/currently labs/imaging/decision making with Dr. Escobar, my supervising attending. Greater that 50 minutes spent with patient, 50% of the time spent with this patient was devoted to counseling and coordination of care.
[2023-02-04] MEDS: SODIUM CHLORIDE 1,000 ML IV SCH (15:55)
[2023-02-05] MEDS: PROTONIX PO SCH (05:30)
[2023-02-05 05:43] VITALS: TEMP 97.2
[2023-02-05] MEDS: SODIUM CHLORIDE 1,000 ML IV SCH (07:01)
[2023-02-05] MEDS: MULTIVITAMIN TABLET PO SCH (08:51)
[2023-02-05] MEDS: TOPROL XL PO SCH (08:52)
[2023-02-05] MEDS: CYMBALTA PO SCH (08:52)
[2023-02-05] MEDS: CLARITIN PO SCH (08:52)
[2023-02-05] MEDS: SYMBICORT 160-4.5 MCG INHALER IH SCH (08:54)
[2023-02-05] MEDS: FLONASE NAS SCH (08:55)
[2023-02-05] MEDS: ASPIRIN EC PO SCH (09:05)
[2023-02-05] MEDS: MOLNUPIRAVIR 200 MG PO SCH (09:23)
[2023-02-05 09:35] LABS: BASOPHILS % (AUTO) 0.4 % (0.0-3.0); EOSINOPHILS # (AUTO) 0.1 K/ul (0.0-0.7); HEMATOCRIT 37.4 % (42.0-52.0); HEMOGLOBIN 13.4 g/dl (14.0-18.0); IMMATURE GRANULOCYTE % (AUTO) 0.2 % (0.0-5.0); LYMPHOCYTES # (AUTO) 1.3 K/uL (0.60-3.4); LYMPHOCYTES % (AUTO) 25.9 (10.0-50.0); MEAN CORPUSCULAR HEMOGLOBIN 30.5 pg (27.0-31.0); MEAN CORPUSCULAR HGB CONC 35.8 (31.8-35.4); MEAN CORPUSCULAR VOLUME 85.2 fl (80.0-94.0); MONOCYTES # (AUTO) 0.5 K/uL (0.4-2.0); MONOCYTES % (AUTO) 9.5 (0-10); NEUTROPHILS # (AUTO) 3.1 K/ul (2.0-6.9); PLATELET COUNT 134 10^3/uL (140-440); RDW COEFFICIENT OF VARIATION 12.3 % (11.6-14.8); RED BLOOD COUNT 4.39 10^6/ul (4.70-6.10); WHITE BLOOD COUNT 5.06 K/ul (4.2-10.2)
[2023-02-05 09:46] LABS: ALANINE AMINOTRANSFERASE 60.7 U/L (0-50); ALBUMIN 4.03 g/dL (3.5-5.0); ALKALINE PHOSPHATASE 71.5 U/L (56-119); ASPARTATE AMINO TRANSFERASE 65.9 U/L (17-59); BILIRUBIN,TOTAL 1.63 mg/dL (0.2-1.3); BLOOD UREA NITROGEN 17.2 mg/dL (9-20); CALCIUM 8.62 mg/dL (8.4-10.2); CARBON DIOXIDE 27.7 mmol/L (22-30.0); CHLORIDE 98.7 mmol/L (98-107); CREATININE 0.8 mg/dL (0.60-1.10); GLUCOSE 93.2 mg/dL (74-106); POTASSIUM 3.83 mmol/L (3.5-5.1); SODIUM 136.7 mmol/L (134.5-145); TOTAL PROTEIN 7.59 g/dL (6.3-8.2)
[2023-02-05] MEDS: TYLENOL PO PRN (10:27)
[2023-02-05 10:47] VITALS: BP 140/66; PULSE 77; RESP 18
--- NOTE | 2023-02-05 12:30 | DCSUM ---
Admission Date Admission Date: 02/02/23 Discharge Date Discharge Date: 02/05/23 Admission Diagnosis Admission Diagnosis: 1. Acute Metabolic Encephalopathy in setting of Covid-19 2. Covid-19 3. Weakness in setting of Covid-19 4. Positive Blood Culture 5. Hypertension Discharge Diagnosis Discharge Diagnosis: 1. Acute Metabolic Encephalopathy in setting of Covid-19 - Improving 2. Covid-19 - Improving 3. Weakness in setting of Covid-19 - Improving 4. Positive Blood Culture 5. Hypertension - Stable 6. Acute Transaminitis - Stable 7. Dehydration - Resolved Hospital Provider Hospital Provider: INDER KNUTSON[facility] Phys[facility] Primary Care Physician: FREDDY SNELL Summary of History and Physical Summary of History and Physical: 67 yo male presented to the ER for altered mental status and weakness. reports that he started getting sick on 01/28 with symptoms of congestion, sore throat, and cough. Tested for Covid on Wednesday and was negative. Tested again on Wednesday and was positive. ER tested as well and confirmed the positive. He is asymptomatic now, but has had generalized weakness that has continued to worsen. reports that at home he has been unable to get up to use the bathroom or perform any of his ADLs since the onset of his symptoms. He has been taking molnupiravir since Wednesday. Patient has a history of dementia and is confused at baseline but not to this degree per her report. He is disoriented x 3. However, he is able to follow some basic commands. Due to this, unable to provide HPI/ROS. Hospital Course Subjective: During course of stay, lagevrio was continued for treatment of covid. He was given NS@75mL/hr for weakness and dehydration. Per , mental status improved drastically over the last 2 days. States that he has declined over the past year and has not had a formal diagnosis of dementia. His memory has continued to lapse and unable to answer questions regarding his name or other orientation questions. Labs have remained stable. Liver enzymes have been mildly elevated but no other abnormalities. Blood cultures were obtained in ER. 1 of 3 bottles showed + staph epi. Likely contaminant clinically. Repeat cultures obtained and will contact if any need for antibiotics. VSS stable. WBC count normal. Pt/OT evaluated patient and reported he would benefit from home health services. Appearance: Pleasant, No Apparent Distress and Alert HEENT: MMM CVS: No Murmur and No Rubs Abdomen: Soft, Non-Tender and No Distention Respiratory: No Dyspnea Extremities: No Edema and No Calf Tenderness Vital Signs: Most Recent Vital Signs Temperature 97.2 F L 02/05/23 05:42 Temperature Source Temporal Artery Scan 02/05/23 05:42 Temperature Source Infrared 02/02/23 14:09 Pulse Rate 77 02/05/23 10:47 Respiratory Rate 18 02/05/23 10:47 Blood Pressure 140/66 02/05/23 10:47 Blood Pressure Mean 90 02/05/23 10:47 Blood Pressure Right Arm 154/78 02/02/23 17:05 Blood Pressure Location Right Arm 02/05/23 10:47 Blood Pressure Position Sitting 02/05/23 10:47 O2 Sat by Pulse Oximetry 98 02/05/23 10:47 Oxygen Delivery Method Room Air 02/05/23 11:49 Height 5 ft 9 in 02/02/23 17:05 Weight 183 lb 02/02/23 17:05 Telemetry Type Bedside Monitor 02/05/23 07:00 Telemetry Monitoring Continues 02/05/23 07:00 Irregular Telemetry Rate (Approximate) 60-70 BPM 02/04/23 07:00 Telemetry Heart Rate 78 02/05/23 07:00 Telemetry SPO2 93 02/02/23 19:00 EKG CO Interval 0.16 02/05/23 07:00 EKG QRS Interval 0.08 02/05/23 07:00 Telemetry Strip Reading SR 02/05/23 07:00 Lab Results Last 24 Hours: 02/05/23 09:18 WBC 5.06 RBC 4.39 L Hgb 13.4 L Hct 37.4 L MCV 85.2 MCH 30.5 MCHC 35.8 H RDW Coeff of Kassidy 12.3 Plt Count 134 L Immature Gran % (Auto) 0.2 Neut % (Auto) 62.0 Lymph % (Auto) 25.9 [place] % (Auto) 9.5 Eos % (Auto) 2.0 Baso % (Auto) 0.4 Neut # (Auto) 3.1 Lymph # (Auto) 1.3 [place] # (Auto) 0.5 Eos # (Auto) 0.1 Baso # (Auto) 0.0 Immature Gran # (Auto) 0.0 Sodium 136.7 Potassium 3.83 Chloride 98.7 Carbon Dioxide 27.7 Anion Gap 14.13 BUN 17.2 Creatinine 0.80 Estimated GFR (MDRD) 96.00 BUN/Creatinine Ratio 21.50 Glucose 93.2 Calcium 8.62 Total Bilirubin 1.63 H AST 65.9 H ALT 60.7 H Alkaline Phosphatase 71.5 Total Protein 7.59 Albumin 4.03 Globulin 3.56 Albumin/Globulin Ratio 1.13 Discharge Instructions Discharge Planning: Discharge Planning > 40 minutes If patient is discharged with left ventricular systolic dysfunction: NA Discharged with a beta geovanni? [] If no, why not? [] Discharged with an tre/arb? [] If no, why not? [] Activity as tolerated Regular diet Continue course of lagevrio Follow-up with PCP next week Discharge Medications: Medications at Discharge (Home Meds & RX) albuterol sulfate 90 mcg/actuation aerosol inhaler 2 puff inhalation Q4H PRN shortness of breath or wheezing 02/02/23 aspirin 81 mg tablet,delayed release (Adult Low Dose Aspirin) 81 mg PO DAILY 02/02/23 atorvastatin 20 mg tablet 20 mg PO DAILY 02/02/23 docusate calcium 240 mg capsule 240 mg PO DAILY PRN constipation 02/02/23 duloxetine 60 mg capsule,delayed release 60 mg PO DAILY 02/02/23 fluticasone 250 mcg-salmeterol 50 mcg/dose blistr powdr for inhalation (Advair Diskus) 1 inh inhalation BID 02/02/23 fluticasone propionate 50 mcg/actuation nasal spray,suspension 1 spray intranasal DAILY 02/02/23 ibuprofen-diphenhydramine citrate 200 mg-38 mg tablet 1 cap PO BEDTIME PRN sleep 02/02/23 isosorbide mononitrate 30 mg tablet,extended release 24 hr 30 mg PO DAILY 02/02/23 loratadine 10 mg tablet (Claritin) 10 mg PO DAILY 02/02/23 metoprolol succinate 50 mg tablet,extended release 24 hr 50 mg PO DAILY 02/02/23 molnupiravir 200 mg capsule (EUA) (Lagevrio) 800 mg PO Q12H 02/02/23 pantoprazole 40 mg tablet,delayed release (Protonix) 40 mg PO DAILY 02/02/23 Discharge Plan Discharge Discharge Orders: Discharge Patient (ONCE); Ordered 02/05/23 Ordered By: DMITRY IGNACIO Activity Restrictions/Additional Instructions: Regular diet Activity as tolerated PT/OT Follow-up with PCP next week YOU HAVE A HOSPITAL FOLLOW UP/ NEW PATIENT APPOINTMENT WITH DR. SNELL ON January AT 10:45AM. SHOULD YOU HAVE ANY QUESTIONS OR NEED TO RESCHEDULE YOU CAN CONTACT THEIR OFFICE AT [phone] Instructions: Dementia (GEN), Fall Prevention for Older Adults (GEN), COVID-19 (Coronavirus Disease 2019)(GEN) Patient Disposition: HOME WITH FAMILY CARE Prescriptions: Continued metoprolol succinate 50 mg tablet extended release 24 hr 50 mg PO DAILY fluticasone propionate 50 mcg/actuation spray,suspension 1 spray INTRANASAL DAILY duloxetine 60 mg capsule,delayed release(DR/EC) 60 mg PO DAILY atorvastatin 20 mg tablet 20 mg PO DAILY pantoprazole [Protonix] 40 mg tablet,delayed release (DR/EC) 40 mg PO DAILY loratadine [Claritin] 10 mg tablet 10 mg PO DAILY isosorbide mononitrate 30 mg tablet extended release 24 hr 30 mg PO DAILY Hold Instructions: MD Morelia Barclay (EUA) 200 mg capsule 800 mg PO Q12H Patient Comments: TAKE 4 CAPSULES BY MOUTH EVERY 12 HOURS FOR 5 DAYS albuterol sulfate 90 mcg/actuation HFA aerosol inhaler 2 puff INHALATION Q4H PRN (Reason: shortness of breath or wheezing) aspirin [Adult Low Dose Aspirin] 81 mg tablet,delayed release (DR/EC) 81 mg PO DAILY docusate calcium 240 mg capsule 240 mg PO DAILY PRN (Reason: constipation) fluticasone propion-salmeterol [Advair Diskus] 250-50 mcg/dose blister with device 1 inh inhalation BID ibuprofen-diphenhydramine cit 200-38 mg tablet 1 cap PO BEDTIME PRN (Reason: sleep) Hold Instructions: MD Thibodeaux Did you review [place] UTILIZATION MANAGEMENT RN for ALL controlled substances?: No Discussed opioids are addictive and Narcan is available by prescription or from pharmacy.: No Condition: Stable
== END 2023-02-05 12:30 | disposition home or self-care (01) ==
LOC: ED 14:06 → SCU 14:06
PROVIDERS: ADMIT Hospitalist; ATTEND Nurse Practitioner Family
DX: R79.9 Abnormal finding of blood chemistry, unspecified; I10 Essential (primary) hypertension; R11.2 Nausea with vomiting, unspecified; R41.82 Altered mental status, unspecified; E86.0 Dehydration; G93.41 Metabolic encephalopathy; F03.90 Unspecified dementia, unspecified severity, without behavioral disturbance, psychotic disturbance, mood disturbance, and anxiety; R74.01 Elevation of levels of liver transaminase levels; U07.1 COVID-19; R53.1 Weakness